=== PATIENT | male | born 1945 ===

== ENCOUNTER 2019-09-27 14:29 | Inpatient (IN) | payer OTHER, MEDICAID ==
[~2019-09-27] VITALS: Ht 172.7 cm; Wt 119.8 kg
[2019-09-27 14:00] VITALS: BP 106/55
--- NOTE | 2019-09-27 14:00 | NUR ---
A 74, admitted to [facility], under the services of TY Dodson DO with a diagnosis of dehydration, abnormal labs. Chief complaint is abnormal labs. Patient arrived via ambulance from [facility]. Monitor applied. Initial assessment completed. Vital signs taken and recorded. TY DODSON DO notified of admission to the unit. Orders received. See assessment for past medical history, medications and allergies. Patient and/or family oriented to unit. [facility] visitation policy reviewed. Clothing/patient valuable form completed. GRETCHEN QUIROS
[2019-09-27] MEDS ORDERED: TYLENOL325 M1 PO (14:33)
[2019-09-27] MEDS ORDERED: ASPIR LOW81 MG PO (14:35)
[2019-09-27] MEDS ORDERED: Accuneb 0.1.25 MG/3 INH (14:36)
[2019-09-27] MEDS ORDERED: N-ACETYL-L-CYS600 M1 NEB (14:37)
[2019-09-27] MEDS ORDERED: BASAG SOL SC (14:38)
[2019-09-27] MEDS ORDERED: GENTLE LAXATIVE10 MG R (14:40)
[2019-09-27] MEDS ORDERED: CLONIDINE HCL0.1 MG PO (14:40)
[2019-09-27] MEDS ORDERED: LASIX40 MG PO (14:41)
[2019-09-27] MEDS ORDERED: ELIQUIS5 M1 PO (14:41)
[2019-09-27] MEDS ORDERED: FLEET ENEMA 13133 ML R (14:42)
[2019-09-27] MEDS ORDERED: Ipratropium Brom3 ML INH (14:43)
[2019-09-27] MEDS ORDERED: LEVAQUIN750 M1 PO (14:45)
[2019-09-27] MEDS ORDERED: KLOR-CON M2020 ME1 PO (14:45)
[2019-09-27] MEDS ORDERED: COZAAR25 M1 PO (14:46)
[2019-09-27] MEDS ORDERED: MILK OF MA400 MG/51 PO (14:47)
[2019-09-27] MEDS ORDERED: PROTONIX40 MG PO (14:48)
[2019-09-27] MEDS ORDERED: NOVOLOG100 UNIT/1 SQ (14:50)
[2019-09-27] MEDS ORDERED: Synthroid,Levo50 MCG PO (14:51)
[2019-09-27 15:48] LABS: ABG BASE EXCESS 6.1 mmol/L (-2.0-2.0); ARTERIAL BLOOD GAS PH 7.472 (7.35-7.45)
[2019-09-27 16:00] VITALS: BP 120/68
--- NOTE | 2019-09-27 16:45 | NUR ---
TALKEN DOWN TO CT FOR CT ABDOMEN, CHEST AND PELVIS
--- NOTE | 2019-09-27 19:00 | NUR ---
DR. NAVARRETE NOTIFIED OF CONSULT ABD CT ABDOMEN RESULTS
[2019-09-27 20:00] VITALS: BP 123/63
[2019-09-28] VITALS: BP 107/78
[2019-09-28 04:00] VITALS: BP 117/79
--- NOTE | 2019-09-28 05:44 | NUR ---
CARMELINA SANDERS [id number] Please refer to the physician's history and physical for past medical history, comorbid conditions, and allergies. Diagnosis: DEHYDRATION PROTEIN-CALORIE MALNUTRITION SEVERE Adrian Score: 13,MODERATE RISK WOUND DESCRIPTIONS: Wound Number: 1 Location of the wound: right buttocks Type of wound: stage 2 Thickness: Partial Size: 1.5cm x 2.5cm x 0.1cm Tunneling: none Undermining: none Sinus Tract: none Presence of Exudate: Serosanguineous Amount: Light Color: Red Odor: None Periwound Skin Appearance: Scar Wound edges: approximated Pain (associated with wound): none at time of assessment How does patient state this happened? pt unable to state how this happened Wound Number: 2 Location of the wound: left buttocks Type of wound: stage 2 Thickness: Partial Size: 0.5cm x 2.5cm x 0.1cm Tunneling: none Undermining: none Sinus Tract: none Presence of Exudate: Serosanguineous Amount: Light Color: Red Odor: None Periwound Skin Appearance: Scar Wound edges: approximated Pain (associated with wound): none at time of assessment How does patient state this happened? pt unable to state how this happened Wound Number: 3 Location of the wound: right ankle Type of wound: stage 2 Thickness: Partial Size: 1.0cm x 1.5cm x 0.1cm Tunneling: none Undermining: none Sinus Tract: none Presence of Exudate: none Amount: None Color: Red Odor: None Periwound Skin Appearance: Normal Wound edges: approximated Pain (associated with wound): none at time of assessment How does patient state this happened? pt unable to state how this happened Surface the patient is resting on: XPRT SKIN PREVENTION RECOMMENDATION: 1. Pressure redistribution support surface as appropriate 2. Elevate heels 3. Remove boots/TEDS every shift and reapply 4. Head of bed 30 degrees as tolerated 5. Assess nutrition and hydration 6. Manage moisture 7. Avoid the use of containment devices while in bed 8. Use absorptive products on surfaces limit layers of linens on bed 9. Turn and reposition every 1-2 hours in bed and every 1 hour in chair as tolerated 10. Weight shifts every 15 minutes while up in chair 11. Offloading with pillows or device to keep heels elevated off bed 12. Monitor skin at least every shift 13. Inspect under medical devices twice a day WOUND TREATMENT RECOMMENDATIONS: Cleanse right buttocks, left buttocks and right ankle with nss and apply sureprep around the wound hydrogel to wound bed and cover with optifoam gentle. Heel raiser pro boots to bilateral feet while in bed.
[2019-09-28 06:11] LABS: ALBUMIN 2.5 gm/dl (3.1-4.5); CREATININE 2.26 mg/dL (0.70-1.30); PHOSPHOROUS 2.5 mg/dL (2.5-4.9); POTASSIUM 3.4 mmol/L (3.5-5.1); TOTAL PROTEIN 8.9 gm/dL (6.4-8.2)
[2019-09-28 06:16] LABS: FREE T4 3.11 ng/dl (0.76-1.46)
[2019-09-28 06:17] LABS: VITAMIN D, 25-HYDROXY 60.9 ng/mL (30-100)
[2019-09-28 06:33] LABS: BASO # 0.1 10*3/uL (0.0-0.1); BASO % 0.7 % (0.0-1.0); EOS # 0.4 10*3/uL (0.0-0.4); HEMOGLOBIN 11.2 g/dl (14.0-18.0); LYMPH # 1.5 10*3/uL (1.3-4.4); LYMPH % 19.8 % (27.0-41.0); MEAN CELL VOLUME 92.9 fl (80.0-94.0); MEAN CORPUSCULAR HGB 27.4 pg (27.0-31.0); MEAN CORPUSCULAR HGB CONC 29.5 g/dl (33.0-37.0); MEAN PLATELET VOLUME 11.9 fl (9.6-12.3); MONO # 0.7 10*3/uL (0.1-1.0); NEUT # 4.7 10*3/uL (2.3-7.9); NUCLEATED RED BLOOD CELL 0.3 % (0.0-0.0); PLATELET COUNT AUTOMATED 207 10*3/uL (130-400); RED BLOOD COUNT 4.09 10*6/uL (4.50-5.90); RED CELL DISTRI WIDTH 16.5 % (0-14.5); WHITE BLOOD COUNT 7.4 10*3/uL (4.8-10.8)
[2019-09-28 07:14] LABS: INTERNATIONAL NORM RATIO 1.2 (2.0-3.5)
[2019-09-28 07:21] LABS: THYROID STIM HORMONE (HS) 12.7 uIU/ml (0.358-4.75)
[2019-09-28 08:00] VITALS: BP 115/65
--- NOTE | 2019-09-28 08:00 | NUR ---
TAKEN OFF VENT AND PLACED ON TRACH MASK 35% PULSE OX 100%. STARES AROUND ROOM AND DOES TRACK WITH EYES. NON-VERBAL. D5W @80CC/HR VIA RIGHT ARM. NO EDEMA NOTED. BP 115/65
--- NOTE | 2019-09-28 08:34 | NUR ---
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 Patient is ok to return when medically stable for discharge.
[2019-09-28 12:00] VITALS: BP 119/73
--- NOTE | 2019-09-28 12:57 | NUR ---
PT IS [facility] AT [facility] AND WILL RETURN WHEN MEDICALLY STABLE. WILL CONTINUE TO FOLLOW.
[2019-09-28 13:09] LABS: BILIRUBIN 1+ (NEGATIVE); BLOOD 3+ (NEGATIVE); CLARITY SL CLOUDY (CLEAR); COLOR YELLOW (YELLOW); GLUCOSE NEGATIVE (NEGATIVE); KETONE NEGATIVE (NEGATIVE); LEUKO ESTERASE TRACE (NEGATIVE); NITRITE NEGATIVE (NEGATIVE); SPECIFIC GRAVITY >= 1.030 (1.005-1.030)
[2019-09-28 13:22] LABS: BACTERIA 1+; RBC 21-30 rbc/hpf (0-2); WBC 21-30 wbc/hpf (0-5)
[2019-09-28 16:00] VITALS: BP 104/40
[2019-09-28 20:00] VITALS: BP 113/74
--- NOTE | 2019-09-28 20:13 | NUR ---
1930 REPOSITIONED ON LEFT SIDE. HOB ELEVATED. SIDE RAILS UP X'S 2. REMAINS NON-VERBAL. IV FLUIDS CONT. PAK PATENT AND DRAINING CLEAR SHADIA URINE. PULSE OX 100% WITH TRACH MASK INTACT. TF MAINTAINED VIA FEEDING TUBE. NO DISTRESS NOTED.
--- NOTE | 2019-09-28 20:53 | NUR ---
COMPLETE BED BATH GIVEN AND LINENS CHANGED.
--- NOTE | 2019-09-28 22:07 | NUR ---
SUCTIONED VIA TRACH FOR MODERATE AMOUNT BLOOD TINGED SPUTUM. TRACH MASK INTACT.
[2019-09-29] VITALS: BP 98/64
--- NOTE | 2019-09-29 00:21 | NUR ---
VENT SECURE TO TRACH. PULSE OX 99%. RESTING IN BED WITH HOB ELEVATED. SIDE RAILS UP X'S 2. EYES CLOSED. APPEARS TO BE SLEEPING. IV FLUIDS CONT.
--- NOTE | 2019-09-29 03:01 | NUR ---
Upon discharge recommend patient to follow up for wound care in outpatient setting continue current wound care orders at discharging facility.
--- NOTE | 2019-09-29 03:54 | NUR ---
Shift chart check completed.
[2019-09-29 04:00] VITALS: BP 102/68
[2019-09-29 05:32] LABS: CREATININE 2.18 mg/dL (0.70-1.30); PHOSPHOROUS 2.8 mg/dL (2.5-4.9); POTASSIUM 3.3 mmol/L (3.5-5.1)
[2019-09-29 06:14] LABS: BASO # 0.1 10*3/uL (0.0-0.1); BASO % 0.6 % (0.0-1.0); EOS # 0.5 10*3/uL (0.0-0.4); EOS % 5.9 % (1.0-4.0); HEMATOCRIT 34.8 % (42.0-52.0); HEMOGLOBIN 10.5 g/dl (14.0-18.0); LYMPH # 1.6 10*3/uL (1.3-4.4); LYMPH % 17.7 % (27.0-41.0); MEAN CELL VOLUME 92.3 fl (80.0-94.0); MEAN CORPUSCULAR HGB 27.9 pg (27.0-31.0); MEAN CORPUSCULAR HGB CONC 30.2 g/dl (33.0-37.0); MEAN PLATELET VOLUME 12.8 fl (9.6-12.3); MONO # 0.7 10*3/uL (0.1-1.0); MONO % 7.9 % (3.0-9.0); NEUT # 6.1 10*3/uL (2.3-7.9); NEUT % 67.6 % (47.0-73.0); PLATELET COUNT AUTOMATED 205 10*3/uL (130-400); RED BLOOD COUNT 3.77 10*6/uL (4.50-5.90); RED CELL DISTRI WIDTH 16.6 % (0-14.5)
--- NOTE | 2019-09-29 07:00 | NUR ---
ATTEMPTED TO PLACE DOMENIC AREVALO - PT PULLED LEG AWAY 7 GAVE NURSE A LOOK - ATTEMPTED TO PLACE AGAIN & PT REPEATED -- TUBIGRIP PLACED ALONG WITH REPLACED HEEL RAISERS
[2019-09-29 08:00] VITALS: BP 104/68
--- NOTE | 2019-09-29 08:30 | NUR ---
updated clinicals faxed to [facility] for review. 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
--- NOTE | 2019-09-29 08:53 | NUR ---
PATIENT PLACED ON 30% AEROSOL TRACH MASK PER ORDERS SPO2:99%
--- NOTE | 2019-09-29 09:00 | NUR ---
DR MCCLOUD ROUNDED - CASE DISCUSSED
--- NOTE | 2019-09-29 09:45 | NUR ---
DR MARIE ROUNDED/ CASE REVIEWED & DISCUSSED WITH RESP THERAPIST. PATIENT DOING WELL ON TRACH MASK 35% O2.
--- NOTE | 2019-09-29 10:31 | NUR ---
FACE SHEET FAXED TO [facility] FOR POSSIBLE TRANSFER -
--- NOTE | 2019-09-29 11:53 | NUR ---
PT IS [facility] AT [facility]. PT IS POSSIBLE TRASFER TO [facility]. WILL CONTINUE TO FOLLOW.
[2019-09-29 12:00] VITALS: BP 92/60
--- NOTE | 2019-09-29 12:15 | NUR ---
DR GAUTHIER ROUNDED AND ORDERS RECEIVED. IVF BOLUS ORDERED THEN IVF ADJUSTED.
[2019-09-29 16:00] VITALS: BP 106/56
--- NOTE | 2019-09-29 18:05 | NUR ---
RECEIVED CALL FROM [facility] - THEY ARE HOPING TO GET HIM THERE TONIGHT. CURRENT VITAL SIGNS REVIEWED. NO CHANGE IN STATUS. REQUESTED WE CALL IF ANY CHANGE..
[2019-09-29 20:00] VITALS: BP 98/48
--- NOTE | 2019-09-29 20:14 | NUR ---
1930 RESTING IN BED ON LEFT SIDE. HOB ELEVATED. SIDE RAILS UP X'S 2. TRACH MASK SECURE TO VENT. SUCTIONED FOR LARGE AMOUNT ELLIOTT SPUTUM. PULSE OX 100%.. PAK PATENT AND DRAINING CLEAR SHADIA URINE. NO DISTRESS NOTED.
--- NOTE | 2019-09-29 22:11 | NUR ---
PLACED ON THE VENT AT HS ORDERED.
[2019-09-30] VITALS: BP 107/69
--- NOTE | 2019-09-30 00:02 | NUR ---
INCONTINENT OF SMALL AMOUNT BROWN, MUSHY BM. COMPLETE BED BATH GIVEN AND LINENS CHANGED. REPOSITIONED ON R SIDE.
--- NOTE | 2019-09-30 00:22 | NUR ---
[facility] CALLED US. THEY HAVE A BED FOR TRANSFER. INFORMATION RECEIVED.
--- NOTE | 2019-09-30 00:53 | NUR ---
SIGNIFICANT OTHER, LAZARO SIMON, CALLED AND INFORMED OF PT IMPENDING TRANSFER TO [facility] VIA [facility].
--- NOTE | 2019-09-30 01:13 | NUR ---
TRANSFERRED TO [facility]IA [facility]. REPORT GIVEN TO AMBULANCE PERSONNEL. 02 INTACT VIA TRACH MASK FOR TRANSFER. DOBHOFF NG TUBE INTACT. TUBE FEEDINGS OFF FOR TRANSFER.
--- NOTE | 2019-09-30 01:31 | NUR ---
REPORT GIVEN TO RECEIVING FACILITY. PT CONDITION IS STABLE.
--- NOTE | 2019-09-30 01:32 | NUR ---
ACCEPTING PHYSICIAN IS DR. FIDE RAMIREZ.
--- NOTE | 2019-09-30 01:33 | NUR ---
ABOVE NOTE SHOULD READ PT WAS TRANSPORTED BY [facility]
== END 2019-09-30 01:13 | disposition short-term general hospital (02) | DRG 682 ==
LOC: ICCU 14:29
PROVIDERS: Family Medicine; Internal Medicine; Internal Medicine Nephrology; ADMIT Internal Medicine
PROC: 5A1935Z Respiratory Ventilation, Less than 24 Consecutive Hours (ICD-10-PCS; principal; 2019-09-30)
DX: N17.0 Acute kidney failure with tubular necrosis (principal); E43 Unspecified severe protein-calorie malnutrition; E87.0 Hyperosmolality and hypernatremia; J96.10 Chronic respiratory failure, unspecified whether with hypoxia or hypercapnia; E86.0 Dehydration; E87.6 Hypokalemia; N18.3 Chronic kidney disease, stage 3 (moderate); E87.8 Other disorders of electrolyte and fluid balance, not elsewhere classified; E83.41 Hypermagnesemia; E88.09 Other disorders of plasma-protein metabolism, not elsewhere classified; F03.90 Unspecified dementia, unspecified severity, without behavioral disturbance, psychotic disturbance, mood disturbance, and anxiety; E11.65 Type 2 diabetes mellitus with hyperglycemia; I50.9 Heart failure, unspecified; F32.9 Major depressive disorder, single episode, unspecified; J44.9 Chronic obstructive pulmonary disease, unspecified; I11.0 Hypertensive heart disease with heart failure; G47.33 Obstructive sleep apnea (adult) (pediatric); D53.9 Nutritional anemia, unspecified; E83.39 Other disorders of phosphorus metabolism; E11.22 Type 2 diabetes mellitus with diabetic chronic kidney disease; I25.10 Atherosclerotic heart disease of native coronary artery without angina pectoris; B96.5 Pseudomonas (aeruginosa) (mallei) (pseudomallei) as the cause of diseases classified elsewhere; S30.1XXA Contusion of abdominal wall, initial encounter; I25.2 Old myocardial infarction; Z93.0 Tracheostomy status; Z86.711 Personal history of pulmonary embolism; Z90.49 Acquired absence of other specified parts of digestive tract; Z88.8 Allergy status to other drugs, medicaments and biological substances; Z79.4 Long term (current) use of insulin; Z79.82 Long term (current) use of aspirin; Z79.899 Other long term (current) drug therapy; Z68.39 Body mass index [BMI] 39.0-39.9, adult; Z79.01 Long term (current) use of anticoagulants; Z87.442 Personal history of urinary calculi; X58.XXXA Exposure to other specified factors, initial encounter; Y93.89 Activity, other specified; Y92.89 Other specified places as the place of occurrence of the external cause; Y99.8 Other external cause status

== ENCOUNTER 2019-10-21 11:51 | Emergency (ER) | payer OTHER, MEDICAID ==
[~2019-10-21] VITALS: Ht 180.3 cm; Wt 127.0 kg
[~2019-10-21 11:51] MED LIST: ASPIR LOW81 MG PO; Accuneb 0.1.25 MG/3 INH; BASAG SOL SC; CLONIDINE HCL0.1 MG PO; COZAAR25 M1 PO; ELIQUIS5 M1 PO; FLEET ENEMA 13133 ML R; GENTLE LAXATIVE10 MG R; Ipratropium Brom3 ML INH; KLOR-CON M2020 ME1 PO; LASIX40 MG PO; LEVAQUIN750 M1 PO; MILK OF MA400 MG/51 PO; N-ACETYL-L-CYS600 M1 NEB; NOVOLOG100 UNIT/1 SQ; PROTONIX40 MG PO; Synthroid,Levo50 MCG PO; TYLENOL325 M1 PO
== END 2019-10-21 17:41 | disposition home or self-care (01) ==
LOC: ED 11:51
DX: T85.898A Other specified complication of other internal prosthetic devices, implants and grafts, initial encounter (principal); I25.2 Old myocardial infarction; E11.9 Type 2 diabetes mellitus without complications; J44.9 Chronic obstructive pulmonary disease, unspecified; I11.0 Hypertensive heart disease with heart failure; I50.9 Heart failure, unspecified; Z79.82 Long term (current) use of aspirin; Z79.2 Long term (current) use of antibiotics; Z88.8 Allergy status to other drugs, medicaments and biological substances; Z79.899 Other long term (current) drug therapy; Y83.8 Other surgical procedures as the cause of abnormal reaction of the patient, or of later complication, without mention of misadventure at the time of the procedure; Y92.89 Other specified places as the place of occurrence of the external cause

== ENCOUNTER 2019-10-26 18:33 | Emergency (ER) | payer OTHER, MEDICAID ==
[~2019-10-26] VITALS: Ht 175.2 cm; Wt 134.3 kg
== END 2019-10-26 21:50 | disposition home or self-care (01) ==
LOC: ED 18:33
DX: T85.528A Displacement of other gastrointestinal prosthetic devices, implants and grafts, initial encounter (principal); E11.22 Type 2 diabetes mellitus with diabetic chronic kidney disease; I13.0 Hypertensive heart and chronic kidney disease with heart failure and stage 1 through stage 4 chronic kidney disease, or unspecified chronic kidney disease; N18.9 Chronic kidney disease, unspecified; I50.9 Heart failure, unspecified; J44.9 Chronic obstructive pulmonary disease, unspecified; F03.90 Unspecified dementia, unspecified severity, without behavioral disturbance, psychotic disturbance, mood disturbance, and anxiety; I25.2 Old myocardial infarction; Z93.0 Tracheostomy status; Y84.8 Other medical procedures as the cause of abnormal reaction of the patient, or of later complication, without mention of misadventure at the time of the procedure; Y92.89 Other specified places as the place of occurrence of the external cause

== ENCOUNTER 2019-10-27 21:59 | Emergency (ER) | payer OTHER, MEDICAID ==
[~2019-10-27] VITALS: Ht 180.3 cm; Wt 125.6 kg
[2019-10-27 22:46] LABS: BASO % 0.3 % (0.0-1.0); EOS # 0.1 10*3/uL (0.0-0.4); EOS % 0.8 % (1.0-4.0); HEMATOCRIT 35.2 % (42.0-52.0); HEMOGLOBIN 10.8 g/dl (14.0-18.0); LYMPH # 0.8 10*3/uL (1.3-4.4); LYMPH % 5.6 % (27.0-41.0); MEAN CELL VOLUME 89.1 fl (80.0-94.0); MEAN CORPUSCULAR HGB 27.3 pg (27.0-31.0); MEAN CORPUSCULAR HGB CONC 30.7 g/dl (33.0-37.0); MEAN PLATELET VOLUME 10.2 fl (9.6-12.3); MONO # 0.6 10*3/uL (0.1-1.0); MONO % 4.3 % (3.0-9.0); NEUT # 12.7 10*3/uL (2.3-7.9); NEUT % 88.3 % (47.0-73.0); PLATELET COUNT AUTOMATED 295 10*3/uL (130-400); RED BLOOD COUNT 3.95 10*6/uL (4.50-5.90); RED CELL DISTRI WIDTH 15.9 % (0-14.5); WHITE BLOOD COUNT 14.4 10*3/uL (4.8-10.8)
[2019-10-27 22:57] LABS: ACT PARTIAL THROMBO TIME 30.2 SECONDS (20.0-32.1)
[2019-10-27 23:04] LABS: ALBUMIN 2.2 gm/dl (3.1-4.5); ALKALINE PHOSPHATASE 76 U/L (45-117); BUN 15 mg/dl (7-24); CHLORIDE 100 mmol/L (98-107); CREATININE 1.06 mg/dL (0.70-1.30); POTASSIUM 4.2 mmol/L (3.5-5.1); SGOT/AST 31 IU/L (3-35); SGPT/ALT 19 U/L (12-78); SODIUM 136 mmol/L (136-145); TOTAL PROTEIN 8.6 gm/dL (6.4-8.2)
[2019-10-27 23:09] LABS: TROPONIN I < 0.015 ng/ml (<0.045)
[2019-10-27 23:36] LABS: ABG BASE EXCESS 6.9 mmol/L (-2.0-2.0); ARTERIAL BLOOD GAS PH 7.412 (7.35-7.45)
[2019-10-28 00:10] LABS: BILIRUBIN NEGATIVE (NEGATIVE); BLOOD TRACE-INTACT (NEGATIVE); CLARITY CLOUDY (CLEAR); COLOR YELLOW (YELLOW); GLUCOSE NEGATIVE (NEGATIVE); KETONE NEGATIVE (NEGATIVE); LEUKO ESTERASE NEGATIVE (NEGATIVE); NITRITE NEGATIVE (NEGATIVE); PH 5.5 (5.0-9.0); SPECIFIC GRAVITY >= 1.030 (1.005-1.030); UROBILINOGEN 0.2 E.U./dl (0.2-1.0)
[2019-10-28] MEDS ORDERED: AUGMENTIN400 MG/5 M PO (01:42)
== END 2019-10-28 04:15 | disposition home or self-care (01) ==
LOC: ED 21:59
PROVIDERS: Emergency Medicine Emergency Medical Services
DX: J96.91 Respiratory failure, unspecified with hypoxia (principal); H70.93 Unspecified mastoiditis, bilateral; R41.82 Altered mental status, unspecified; J44.9 Chronic obstructive pulmonary disease, unspecified; I25.2 Old myocardial infarction; I13.0 Hypertensive heart and chronic kidney disease with heart failure and stage 1 through stage 4 chronic kidney disease, or unspecified chronic kidney disease; E11.22 Type 2 diabetes mellitus with diabetic chronic kidney disease; N18.3 Chronic kidney disease, stage 3 (moderate); I50.9 Heart failure, unspecified; Z93.0 Tracheostomy status; Z88.8 Allergy status to other drugs, medicaments and biological substances; Z79.899 Other long term (current) drug therapy; Z79.82 Long term (current) use of aspirin; Z79.4 Long term (current) use of insulin

== ENCOUNTER 2019-11-06 00:08 | Emergency (ER) | payer OTHER, MEDICAID ==
[~2019-11-06 00:08] MED LIST changes: +AUGMENTIN400 MG/5 M PO
== END 2019-11-06 01:27 | disposition other institution (70) ==
LOC: ED 00:08
DX: T85.528A Displacement of other gastrointestinal prosthetic devices, implants and grafts, initial encounter (principal); I25.2 Old myocardial infarction; E11.22 Type 2 diabetes mellitus with diabetic chronic kidney disease; I13.0 Hypertensive heart and chronic kidney disease with heart failure and stage 1 through stage 4 chronic kidney disease, or unspecified chronic kidney disease; N18.3 Chronic kidney disease, stage 3 (moderate); I50.9 Heart failure, unspecified; F03.90 Unspecified dementia, unspecified severity, without behavioral disturbance, psychotic disturbance, mood disturbance, and anxiety; Z88.8 Allergy status to other drugs, medicaments and biological substances; Z79.2 Long term (current) use of antibiotics; Z79.899 Other long term (current) drug therapy; Z79.82 Long term (current) use of aspirin; Z79.4 Long term (current) use of insulin; Z90.49 Acquired absence of other specified parts of digestive tract; Z93.0 Tracheostomy status; Z93.1 Gastrostomy status; Y84.8 Other medical procedures as the cause of abnormal reaction of the patient, or of later complication, without mention of misadventure at the time of the procedure; Y92.89 Other specified places as the place of occurrence of the external cause

== ENCOUNTER 2019-11-07 00:18 | Emergency (ER) | payer OTHER, MEDICAID ==
[~2019-11-07] VITALS: Ht 172.7 cm; Wt 128.5 kg
== END 2019-11-07 02:00 | disposition other institution (70) ==
LOC: ED 00:18
DX: T85.528A Displacement of other gastrointestinal prosthetic devices, implants and grafts, initial encounter (principal); I25.2 Old myocardial infarction; E11.22 Type 2 diabetes mellitus with diabetic chronic kidney disease; I13.0 Hypertensive heart and chronic kidney disease with heart failure and stage 1 through stage 4 chronic kidney disease, or unspecified chronic kidney disease; N18.3 Chronic kidney disease, stage 3 (moderate); I50.9 Heart failure, unspecified; F03.90 Unspecified dementia, unspecified severity, without behavioral disturbance, psychotic disturbance, mood disturbance, and anxiety; Z88.8 Allergy status to other drugs, medicaments and biological substances; Z79.2 Long term (current) use of antibiotics; Z79.899 Other long term (current) drug therapy; Z79.82 Long term (current) use of aspirin; Z79.4 Long term (current) use of insulin; Z90.49 Acquired absence of other specified parts of digestive tract; Z93.0 Tracheostomy status; Z93.1 Gastrostomy status; Y84.8 Other medical procedures as the cause of abnormal reaction of the patient, or of later complication, without mention of misadventure at the time of the procedure; Y92.89 Other specified places as the place of occurrence of the external cause

== ENCOUNTER → 2019-11-17 | Outpatient (CLI) | payer OTHER, MEDICAID ==
--- NOTE | 2019-11-17 11:30 | NUR ---
SPEECH THERAPY Patient was seen for a modified barium swallow study this date per physician orders. Patient is a resident of [facility]. He was accompanied to evaluation this date by his respiratory therapist who assisted in providing case history. Patient is a 74 year old male, presenting with tracheostomy tube, receiving 3LO2 via trach collar. Patient's cuff was partially inflated, per respiratory therapist, who additionally reports patient tolerates deflated cuff. Patient currently receives nutrition via NG tube which was present during assessment. Patient has medical history s/f Dementia, chronic respiratory failure, and COPD. Respiratory therapist reports that patient has been trached for approximately 6-8 months. He additionally reports Speech Therapist within [facility] has been working with patient on PO intake. Patient was not able to follow simple, verbal directions paired with model, therefore oral mech exam not fully able to be administered, however natural teeth on the bottom were observed, while edentulous on top. Patient was assessed with pureed applesauce, banana, honey-like liquid, nectar-like liquid, and thin liquid barium with clinician assistance for feeding. Patient demonstrated slow mastication and AP transfer of pureed and soft solids. He required two swallows to clear oral cavity. During trials of solids and liquids, patient demonstrated delayed initiation of pharyngeal swallow, with pooling to the valleculae. Once swallow was triggered, no pharyngeal reisudes were observed. No penetration or aspiration was observed across all trials of each consistency, including thin liquid barium via tsp and cup. Trials were clinician-controlled, with small bites and sips to increase safety of oropharyngeal swallow. Patient was suctioned by respiratory therapist following PO intake. Mucus was suctioned, with no white barium observed. Patient demonstrated tolerance of soft diet with small sips of thin liquid. Patient is appropriate to begin PO intake, with recommended diet of soft solids and thin liquid. [place] safe swallowing strategies are recommended including taking small bites and sips and sitting upright during all PO intake. Recommend patient be monitored at meals and during PO intake. Recommend patient continue with NG tube feeding until patient can tolerate enough PO intake to maintain adequate nutrition and hydration, with physician to determine when appropriate for NG tube removal. Written results and recommendations were given to respiratory therapist to give to Speech Therapist within patient's nursing facility. Thank you for your consultation. Susan Griffith MA CCC-PERSONNEL REPRESENTATIVE
== END | disposition home or self-care (01) ==
LOC: RAD/SH 11-02 14:00
DX: R13.10 Dysphagia, unspecified (principal); R10.13 Epigastric pain; I10 Essential (primary) hypertension; E11.9 Type 2 diabetes mellitus without complications

== ENCOUNTER 2019-12-01 15:32 | Emergency (ER) | payer OTHER, MEDICAID ==
[2019-12-01 17:06] LABS: BASO # 0.1 10*3/uL (0.0-0.1); BASO % 0.6 % (0.0-1.0); EOS # 0.2 10*3/uL (0.0-0.4); EOS % 2.4 % (1.0-4.0); HEMOGLOBIN 11.6 g/dl (14.0-18.0); LYMPH # 1.6 10*3/uL (1.3-4.4); LYMPH % 20.7 % (27.0-41.0); MEAN CELL VOLUME 86.8 fl (80.0-94.0); MEAN CORPUSCULAR HGB 26.5 pg (27.0-31.0); MEAN CORPUSCULAR HGB CONC 30.5 g/dl (33.0-37.0); MEAN PLATELET VOLUME 10.6 fl (9.6-12.3); MONO # 0.5 10*3/uL (0.1-1.0); MONO % 5.9 % (3.0-9.0); NEUT # 5.4 10*3/uL (2.3-7.9); PLATELET COUNT AUTOMATED 253 10*3/uL (130-400); RED BLOOD COUNT 4.38 10*6/uL (4.50-5.90); RED CELL DISTRI WIDTH 16.6 % (0-14.5); WHITE BLOOD COUNT 7.8 10*3/uL (4.8-10.8)
[2019-12-01 17:21] LABS: ALBUMIN 2.6 gm/dl (3.1-4.5); ALKALINE PHOSPHATASE 85 U/L (45-117); BUN 17 mg/dl (7-24); CHLORIDE 106 mmol/L (98-107); CREATININE 1.23 mg/dL (0.70-1.30); POTASSIUM 3.8 mmol/L (3.5-5.1); SGOT/AST 22 IU/L (3-35); SGPT/ALT 15 U/L (12-78); SODIUM 141 mmol/L (136-145); TOTAL PROTEIN 8.6 gm/dL (6.4-8.2)
[2019-12-01 17:48] LABS: ABG BASE EXCESS 4.6 mmol/L (-2.0-2.0); ARTERIAL BLOOD GAS PH 7.44 (7.35-7.45)
== END 2019-12-01 21:40 | disposition other institution (70) ==
LOC: ED 15:32
PROVIDERS: Nurse Practitioner
DX: J18.9 Pneumonia, unspecified organism (principal); I12.9 Hypertensive chronic kidney disease with stage 1 through stage 4 chronic kidney disease, or unspecified chronic kidney disease; E11.22 Type 2 diabetes mellitus with diabetic chronic kidney disease; I50.9 Heart failure, unspecified; N18.3 Chronic kidney disease, stage 3 (moderate); Z88.8 Allergy status to other drugs, medicaments and biological substances; J44.9 Chronic obstructive pulmonary disease, unspecified; I25.2 Old myocardial infarction; F32.9 Major depressive disorder, single episode, unspecified; Z79.2 Long term (current) use of antibiotics; Z79.82 Long term (current) use of aspirin; Z79.899 Other long term (current) drug therapy; Z79.4 Long term (current) use of insulin; Z90.49 Acquired absence of other specified parts of digestive tract

== ENCOUNTER 2020-08-11 16:40 | Emergency (ER) | payer OTHER, MEDICAID ==
[~2020-08-11] VITALS: Ht 165.1 cm
== END 2020-08-11 18:09 | disposition short-term general hospital (02) ==
LOC: ED 16:40
DX: J95.03 Malfunction of tracheostomy stoma (principal); I25.2 Old myocardial infarction; E11.9 Type 2 diabetes mellitus without complications; I50.9 Heart failure, unspecified; I11.0 Hypertensive heart disease with heart failure; J44.9 Chronic obstructive pulmonary disease, unspecified; Z79.899 Other long term (current) drug therapy; Z79.82 Long term (current) use of aspirin; Z79.4 Long term (current) use of insulin; Z88.8 Allergy status to other drugs, medicaments and biological substances; Y83.8 Other surgical procedures as the cause of abnormal reaction of the patient, or of later complication, without mention of misadventure at the time of the procedure; Y92.89 Other specified places as the place of occurrence of the external cause

== ENCOUNTER 2020-09-07 06:17 | Emergency (ER) | payer OTHER, MEDICAID ==
[~2020-09-07] VITALS: Ht 177.8 cm; Wt 63.5 kg
== END 2020-09-07 09:25 | disposition other institution (70) ==
LOC: ED 06:17
DX: J95.03 Malfunction of tracheostomy stoma (principal); Z79.899 Other long term (current) drug therapy; Z79.82 Long term (current) use of aspirin; Z79.4 Long term (current) use of insulin; Z90.49 Acquired absence of other specified parts of digestive tract

== ENCOUNTER 2020-10-03 03:52 | Emergency (ER) | payer OTHER, MEDICAID ==
[~2020-10-03] VITALS: Ht 172.7 cm; Wt 90.7 kg
[2020-10-03 04:50] LABS: BASO # 0.1 10*3/uL (0.0-0.1); EOS # 0.2 10*3/uL (0.0-0.4); HEMATOCRIT 43.5 % (42.0-52.0); LYMPH % 32.1 % (27.0-41.0); MEAN CELL VOLUME 84.6 fl (80.0-94.0); MEAN CORPUSCULAR HGB 26.1 pg (27.0-31.0); MEAN CORPUSCULAR HGB CONC 30.8 g/dl (33.0-37.0); MEAN PLATELET VOLUME 10.4 fl (9.6-12.3); MONO # 0.5 10*3/uL (0.1-1.0); NEUT # 3.4 10*3/uL (2.3-7.9); NEUT % 55.7 % (47.0-73.0); PLATELET COUNT AUTOMATED 232 10*3/uL (130-400); RED BLOOD COUNT 5.14 10*6/uL (4.50-5.90); RED CELL DISTRI WIDTH 15.9 % (0-14.5); WHITE BLOOD COUNT 6.1 10*3/uL (4.8-10.8)
[2020-10-03 05:06] LABS: ALBUMIN 2.8 gm/dl (3.1-4.5); ALKALINE PHOSPHATASE 91 U/L (45-117); BUN 21 mg/dl (7-24); CHLORIDE 104 mmol/L (98-107); CREATININE 1.23 mg/dL (0.70-1.30); POTASSIUM 3.8 mmol/L (3.5-5.1); SGOT/AST 35 IU/L (3-35); SGPT/ALT 27 U/L (12-78); SODIUM 137 mmol/L (136-145); TOTAL PROTEIN 7.4 gm/dL (6.4-8.2)
[2020-10-03 05:09] LABS: TROPONIN I < 0.015 ng/ml (<0.045)
== END 2020-10-03 05:47 ==
LOC: ED 03:52
PROVIDERS: Internal Medicine
DX: Z00.01 Encounter for general adult medical examination with abnormal findings (principal); N18.31 Chronic kidney disease, stage 3a; Z88.8 Allergy status to other drugs, medicaments and biological substances; Z79.899 Other long term (current) drug therapy; Z79.4 Long term (current) use of insulin

== ENCOUNTER → 2020-10-09 | Outpatient (CLI) | payer OTHER, MEDICAID | END | disposition home or self-care (01) | LOC: RAD/SH 00:20 | PROVIDERS: ATTEND Internal Medicine | DX: R13.10 Dysphagia, unspecified (principal) ==

== ENCOUNTER 2020-11-24 01:38 | Emergency (ER) | payer MEDICARE, MEDICAID ==
[~2020-11-24] VITALS: Wt 92.5 kg
[2020-11-24 02:01] LABS: BILIRUBIN Negative (Negative); BLOOD Trace-Lysed (Negative); CLARITY Clear (Clear); COLOR Yellow (Yellow); GLUCOSE Negative (Negative); KETONE Negative (Negative); LEUKO ESTERASE 2+ (Negative); NITRITE Negative (Negative); SPECIFIC GRAVITY <= 1.005 (1.001-1.030)
[2020-11-24 02:13] LABS: BASO % 0.6 % (0.0-1.0); EOS # 0.3 10*3/uL (0.0-0.4); EOS % 3.9 % (1.0-4.0); HEMATOCRIT 45.9 % (42.0-52.0); LYMPH # 1.5 10*3/uL (1.3-4.4); MEAN CELL VOLUME 83.8 fl (80.0-94.0); MEAN CORPUSCULAR HGB 26.8 pg (27.0-31.0); MEAN PLATELET VOLUME 9.7 fl (9.6-12.3); MONO # 0.4 10*3/uL (0.1-1.0); MONO % 5.1 % (3.0-9.0); NEUT % 69.1 % (47.0-73.0); PLATELET COUNT AUTOMATED 191 10*3/uL (130-400); RED BLOOD COUNT 5.48 10*6/uL (4.50-5.90); RED CELL DISTRI WIDTH 17.1 % (0-14.5); WHITE BLOOD COUNT 7.2 10*3/uL (4.8-10.8)
[2020-11-24 02:31] LABS: WBC 16-20 wbc/hpf (0-5)
[2020-11-24 02:32] LABS: ALBUMIN 2.7 gm/dl (3.1-4.5); ALKALINE PHOSPHATASE 101 U/L (45-117); BUN 15 mg/dl (7-24); CHLORIDE 105 mmol/L (98-107); CREATININE 1.18 mg/dL (0.70-1.30); POTASSIUM 3.6 mmol/L (3.5-5.1); SGOT/AST 24 IU/L (3-35); SGPT/ALT 19 U/L (12-78); SODIUM 137 mmol/L (136-145); TOTAL PROTEIN 7.4 gm/dL (6.4-8.2)
[2020-11-24 02:36] LABS: TROPONIN I < 0.015 ng/ml (<0.045)
== END 2020-11-24 04:23 ==
LOC: ED 01:38
PROVIDERS: Emergency Medicine
DX: N39.0 Urinary tract infection, site not specified (principal); I13.0 Hypertensive heart and chronic kidney disease with heart failure and stage 1 through stage 4 chronic kidney disease, or unspecified chronic kidney disease; E11.22 Type 2 diabetes mellitus with diabetic chronic kidney disease; N18.31 Chronic kidney disease, stage 3a; G47.33 Obstructive sleep apnea (adult) (pediatric); Z88.8 Allergy status to other drugs, medicaments and biological substances; Z79.899 Other long term (current) drug therapy; Z79.4 Long term (current) use of insulin

== ENCOUNTER → 2021-02-18 | Outpatient (CLI) | payer MEDICARE, MEDICAID | END | disposition home or self-care (01) | LOC: CT 10:34 | PROVIDERS: ATTEND Urology | DX: S30.1XXA Contusion of abdominal wall, initial encounter (principal); R33.9 Retention of urine, unspecified; I25.10 Atherosclerotic heart disease of native coronary artery without angina pectoris; M51.36 Other intervertebral disc degeneration, lumbar region; J98.11 Atelectasis; X58.XXXA Exposure to other specified factors, initial encounter; Y93.89 Activity, other specified; Y92.89 Other specified places as the place of occurrence of the external cause; Y99.8 Other external cause status ==

== ENCOUNTER 2021-03-01 14:04 | Inpatient (IN) | payer MEDICARE, MEDICAID ==
[~2021-03-01] VITALS: Ht 172.7 cm; Wt 97.7 kg
[2021-03-01 14:10] VITALS: BP 172/71
[2021-03-01 15:02] LABS: BASO % 0.4 % (0.0-1.0); EOS # 0.1 10*3/uL (0.0-0.4); EOS % 0.4 % (1.0-4.0); HEMATOCRIT 42.3 % (42.0-52.0); LYMPH # 1.1 10*3/uL (1.3-4.4); LYMPH % 9.9 % (27.0-41.0); MEAN CELL VOLUME 86.5 fl (80.0-94.0); MEAN CORPUSCULAR HGB 27.4 pg (27.0-31.0); MEAN CORPUSCULAR HGB CONC 31.7 g/dl (33.0-37.0); MEAN PLATELET VOLUME 9.5 fl (9.6-12.3); MONO # 0.8 10*3/uL (0.1-1.0); MONO % 6.7 % (3.0-9.0); NEUT # 9.2 10*3/uL (2.3-7.9); NEUT % 82.3 % (47.0-73.0); PLATELET COUNT AUTOMATED 205 10*3/uL (130-400); RED BLOOD COUNT 4.89 10*6/uL (4.50-5.90); RED CELL DISTRI WIDTH 15.8 % (0-14.5); WHITE BLOOD COUNT 11.2 10*3/uL (4.8-10.8)
[2021-03-01 15:17] LABS: ALBUMIN 2.9 gm/dl (3.1-4.5); ALKALINE PHOSPHATASE 97 U/L (45-117); BUN 13 mg/dl (7-24); CHLORIDE 106 mmol/L (98-107); CREATININE 1.26 mg/dL (0.70-1.30); POTASSIUM 3.7 mmol/L (3.5-5.1); SGOT/AST 26 IU/L (3-35); SGPT/ALT 14 U/L (12-78); SODIUM 140 mmol/L (136-145); TOTAL PROTEIN 7.5 gm/dL (6.4-8.2)
[2021-03-01 16:10] VITALS: BP 158/78
[2021-03-01 17:17] VITALS: BP 160/88
[2021-03-01 17:43] LABS: BILIRUBIN Negative (Negative); BLOOD 1+ (Negative); CLARITY Cloudy (Clear); COLOR Yellow (Yellow); GLUCOSE Negative (Negative); KETONE Negative (Negative); LEUKO ESTERASE 3+ (Negative); NITRITE Positive (Negative)
[2021-03-01 17:49] LABS: BACTERIA 4+; EPITHELIAL CELLS 0-2; WBC TNTC wbc/hpf (0-5)
[2021-03-01] MEDS ORDERED: 'CLONIDINE0.1 MG PO (20:31)
[2021-03-01] MEDS ORDERED: VENTOLIN 02.5 MG/3 M INH (20:44)
[2021-03-01] MEDS ORDERED: BIOFREEZE118 ML T (20:45)
[2021-03-01] MEDS ORDERED: VITAMIN D350 MCG PO (20:46)
[2021-03-01] MEDS ORDERED: CHLORASEPTIC 1177 ML MM (20:46)
[2021-03-01] MEDS ORDERED: FLEET ENEMA EX230 M1 R (20:47)
[2021-03-01] MEDS ORDERED: FLOMAX0.4 MG PO (20:48)
[2021-03-01] MEDS ORDERED: LANTUS SOL100 UNIT/1 SC (20:50)
[2021-03-01] MEDS ORDERED: HYDROXYZINE HCL25 MG PO (20:50)
[2021-03-01] MEDS ORDERED: LOPERAMIDE HCL2 MG PO (20:51)
[2021-03-01] MEDS ORDERED: LOSARTAN POTASS50 M1 PO (20:52)
[2021-03-01] MEDS ORDERED: MIRTAZAPINE30 M1 PO (20:52)
[2021-03-01] MEDS ORDERED: PROZAC10 MG PO (20:53)
[2021-03-01] MEDS ORDERED: OMEPRAZOLE MAGN20 MG PO (20:53)
[2021-03-01] MEDS ORDERED: LEVOTHYROXINE100 MC1 PO (20:54)
[2021-03-02 04:35] VITALS: BP 116/62
[2021-03-02 05:57] LABS: BASO % 0.6 % (0.0-1.0); EOS # 0.1 10*3/uL (0.0-0.4); EOS % 1.5 % (1.0-4.0); HEMATOCRIT 38.6 % (42.0-52.0); LYMPH # 1.2 10*3/uL (1.3-4.4); LYMPH % 18.2 % (27.0-41.0); MEAN CELL VOLUME 85.2 fl (80.0-94.0); MEAN CORPUSCULAR HGB 27.8 pg (27.0-31.0); MEAN CORPUSCULAR HGB CONC 32.6 g/dl (33.0-37.0); MONO # 0.7 10*3/uL (0.1-1.0); MONO % 10.1 % (3.0-9.0); NEUT # 4.7 10*3/uL (2.3-7.9); NEUT % 69.3 % (47.0-73.0); PLATELET COUNT AUTOMATED 221 10*3/uL (130-400); RED BLOOD COUNT 4.53 10*6/uL (4.50-5.90); RED CELL DISTRI WIDTH 15.7 % (0-14.5); WHITE BLOOD COUNT 6.8 10*3/uL (4.8-10.8)
[2021-03-02 06:12] LABS: ALBUMIN 2.7 gm/dl (3.1-4.5); BUN 13 mg/dl (7-24); CHLORIDE 102 mmol/L (98-107); CHOLESTEROL 171 mg/dL (<200); CREATININE 1.22 mg/dL (0.70-1.30); LDL CHOLESTEROL 93 mg/dL (9-159); POTASSIUM 3.4 mmol/L (3.5-5.1); SGOT/AST 25 IU/L (3-35); SGPT/ALT 14 U/L (12-78); SODIUM 135 mmol/L (136-145); TRIGLYCERIDES 62 mg/dl (<150)
[2021-03-02 06:25] LABS: ALKALINE PHOSPHATASE 89 U/L (45-117)
[2021-03-02 07:51] LABS: VITAMIN D, 25-HYDROXY 55.6 ng/mL (30-100)
[2021-03-02 08:40] VITALS: BP 161/83
[2021-03-02 12:00] VITALS: BP 141/86
[2021-03-02 16:00] VITALS: BP 170/87
[2021-03-02 20:00] VITALS: BP 185/85
[2021-03-03] VITALS: BP 173/80
[2021-03-03 05:51] LABS: BUN 9 mg/dl (7-24); CHLORIDE 104 mmol/L (98-107); CREATININE 1.11 mg/dL (0.70-1.30); POTASSIUM 3.8 mmol/L (3.5-5.1); SODIUM 136 mmol/L (136-145)
[2021-03-03 06:23] LABS: BASO # 0.1 10*3/uL (0.0-0.1); BASO % 1.6 % (0.0-1.0); EOS # 0.7 10*3/uL (0.0-0.4); EOS % 13.7 % (1.0-4.0); LYMPH # 1.2 10*3/uL (1.3-4.4); LYMPH % 23.5 % (27.0-41.0); MEAN CELL VOLUME 87.5 fl (80.0-94.0); MEAN CORPUSCULAR HGB 27.7 pg (27.0-31.0); MEAN CORPUSCULAR HGB CONC 31.7 g/dl (33.0-37.0); MEAN PLATELET VOLUME 9.8 fl (9.6-12.3); MONO # 0.7 10*3/uL (0.1-1.0); MONO % 12.9 % (3.0-9.0); NEUT # 2.5 10*3/uL (2.3-7.9); NEUT % 48.1 % (47.0-73.0); PLATELET COUNT AUTOMATED 185 10*3/uL (130-400); RED CELL DISTRI WIDTH 15.8 % (0-14.5); WHITE BLOOD COUNT 5.1 10*3/uL (4.8-10.8)
[2021-03-03 08:00] VITALS: BP 152/90
[2021-03-03 12:00] VITALS: BP 150/88
[2021-03-03 16:22] VITALS: BP 127/87
[2021-03-03 20:00] VITALS: BP 154/85
[2021-03-04] VITALS: BP 158/78
[2021-03-04 06:56] LABS: BASO # 0.1 10*3/uL (0.0-0.1); BASO % 0.9 % (0.0-1.0); EOS # 0.6 10*3/uL (0.0-0.4); EOS % 10.4 % (1.0-4.0); HEMATOCRIT 40.8 % (42.0-52.0); LYMPH # 1.5 10*3/uL (1.3-4.4); LYMPH % 26.8 % (27.0-41.0); MEAN CELL VOLUME 86.1 fl (80.0-94.0); MEAN CORPUSCULAR HGB 27.6 pg (27.0-31.0); MEAN CORPUSCULAR HGB CONC 32.1 g/dl (33.0-37.0); MEAN PLATELET VOLUME 10.2 fl (9.6-12.3); MONO # 0.6 10*3/uL (0.1-1.0); MONO % 11.1 % (3.0-9.0); NEUT # 2.8 10*3/uL (2.3-7.9); NEUT % 50.6 % (47.0-73.0); PLATELET COUNT AUTOMATED 202 10*3/uL (130-400); RED BLOOD COUNT 4.74 10*6/uL (4.50-5.90); RED CELL DISTRI WIDTH 15.5 % (0-14.5); WHITE BLOOD COUNT 5.5 10*3/uL (4.8-10.8)
[2021-03-04 07:02] LABS: ALBUMIN 2.7 gm/dl (3.1-4.5); ALKALINE PHOSPHATASE 84 U/L (45-117); BUN 8 mg/dl (7-24); CHLORIDE 104 mmol/L (98-107); CREATININE 1.08 mg/dL (0.70-1.30); POTASSIUM 3.8 mmol/L (3.5-5.1); SGOT/AST 21 IU/L (3-35); SGPT/ALT 12 U/L (12-78); SODIUM 138 mmol/L (136-145); TOTAL PROTEIN 6.6 gm/dL (6.4-8.2)
[2021-03-04 08:00] VITALS: BP 163/98
[2021-03-04] MEDS ORDERED: CALCIUM CARBON200 MG PO (11:41)
[2021-03-04] MEDS ORDERED: CEFUROXIME AXE500 MG PO (11:41)
[2021-03-04 12:00] VITALS: BP 160/90
== END 2021-03-04 14:00 | DRG 871 ==
LOC: ED 14:04 → 4E 16:42 → EDHOLD 16:42 → 4E 03-02 08:07
PROVIDERS: Student in an Organized Health Care Education/Training Program; ADMIT Family Medicine; ATTEND Family Medicine
DX: A41.9 Sepsis, unspecified organism (principal); G93.41 Metabolic encephalopathy; E43 Unspecified severe protein-calorie malnutrition; E87.1 Hypo-osmolality and hyponatremia; I50.32 Chronic diastolic (congestive) heart failure; J96.10 Chronic respiratory failure, unspecified whether with hypoxia or hypercapnia; N39.0 Urinary tract infection, site not specified; G47.33 Obstructive sleep apnea (adult) (pediatric); I11.0 Hypertensive heart disease with heart failure; F03.90 Unspecified dementia, unspecified severity, without behavioral disturbance, psychotic disturbance, mood disturbance, and anxiety; E83.51 Hypocalcemia; B96.20 Unspecified Escherichia coli [E. coli] as the cause of diseases classified elsewhere; Z20.822 Contact with and (suspected) exposure to COVID-19; E11.649 Type 2 diabetes mellitus with hypoglycemia without coma; F32.9 Major depressive disorder, single episode, unspecified; J44.9 Chronic obstructive pulmonary disease, unspecified; D64.9 Anemia, unspecified; Z86.73 Personal history of transient ischemic attack (TIA), and cerebral infarction without residual deficits; Z88.8 Allergy status to other drugs, medicaments and biological substances; Z90.49 Acquired absence of other specified parts of digestive tract; I25.2 Old myocardial infarction; Z86.711 Personal history of pulmonary embolism; Z79.899 Other long term (current) drug therapy; Z68.32 Body mass index [BMI] 32.0-32.9, adult

== ENCOUNTER 2021-03-22 09:47 | Emergency (ER) | payer MEDICARE, MEDICAID ==
[~2021-03-22] VITALS: Ht 182.8 cm; Wt 95.7 kg
[~2021-03-22 09:47] MED LIST changes: +'CLONIDINE0.1 MG PO; +BIOFREEZE118 ML T; +CALCIUM CARBON200 MG PO; +CEFUROXIME AXE500 MG PO; +CHLORASEPTIC 1177 ML MM; +FLEET ENEMA EX230 M1 R; +FLOMAX0.4 MG PO; +HYDROXYZINE HCL25 MG PO; +LANTUS SOL100 UNIT/1 SC; +LEVOTHYROXINE100 MC1 PO; +LOPERAMIDE HCL2 MG PO; +LOSARTAN POTASS50 M1 PO; +MIRTAZAPINE30 M1 PO; +OMEPRAZOLE MAGN20 MG PO; +PROZAC10 MG PO; +VENTOLIN 02.5 MG/3 M INH; +VITAMIN D350 MCG PO
[2021-03-22 11:14] LABS: HEMATOCRIT 42.2 % (42.0-52.0); MEAN CELL VOLUME 86.5 fl (80.0-94.0); MEAN CORPUSCULAR HGB 27.7 pg (27.0-31.0); MEAN PLATELET VOLUME 10.4 fl (9.6-12.3); PLATELET COUNT AUTOMATED 208 10*3/uL (130-400); RED BLOOD COUNT 4.88 10*6/uL (4.50-5.90); RED CELL DISTRI WIDTH 15.5 % (0-14.5); WHITE BLOOD COUNT 5.8 10*3/uL (4.8-10.8)
[2021-03-22 11:23] LABS: ALBUMIN 2.7 gm/dl (3.1-4.5); ALKALINE PHOSPHATASE 89 U/L (45-117); BUN 12 mg/dl (7-24); CHLORIDE 105 mmol/L (98-107); CREATININE 1.24 mg/dL (0.70-1.30); SGOT/AST 32 IU/L (3-35); SGPT/ALT 12 U/L (12-78); SODIUM 137 mmol/L (136-145); TOTAL PROTEIN 7.2 gm/dL (6.4-8.2)
[2021-03-22 11:24] LABS: TROPONIN I < 0.015 ng/ml (<0.045)
[2021-03-22 11:25] LABS: POTASSIUM 5.1 mmol/L (3.5-5.1)
[2021-03-22 11:28] LABS: BASOPHILS 1 % (0-1); PLATELET SUFFICIENCY NORMAL (NORMAL); SCHISTOCYTES FEW; TOTAL CELLS COUNTED 100 #CELLS
== END 2021-03-22 17:42 ==
LOC: ED 09:47
PROVIDERS: Emergency Medicine
DX: I71.1 Thoracic aortic aneurysm, ruptured (principal); R07.89 Other chest pain; F03.90 Unspecified dementia, unspecified severity, without behavioral disturbance, psychotic disturbance, mood disturbance, and anxiety; E11.22 Type 2 diabetes mellitus with diabetic chronic kidney disease; I12.9 Hypertensive chronic kidney disease with stage 1 through stage 4 chronic kidney disease, or unspecified chronic kidney disease; N18.31 Chronic kidney disease, stage 3a; J44.9 Chronic obstructive pulmonary disease, unspecified; F32.9 Major depressive disorder, single episode, unspecified; I25.2 Old myocardial infarction; Z93.1 Gastrostomy status; Z98.890 Other specified postprocedural states; Z93.0 Tracheostomy status; Z88.8 Allergy status to other drugs, medicaments and biological substances; Z79.2 Long term (current) use of antibiotics; Z79.899 Other long term (current) drug therapy; Z86.711 Personal history of pulmonary embolism; Z87.442 Personal history of urinary calculi; Z90.49 Acquired absence of other specified parts of digestive tract

== ENCOUNTER 2021-05-10 23:23 | Emergency (ER) | payer MEDICARE, MEDICAID ==
[2021-05-10 23:57] LABS: BASO # 0.1 10*3/uL (0.0-0.1); BASO % 0.7 % (0.0-1.0); EOS # 0.1 10*3/uL (0.0-0.4); EOS % 1.8 % (1.0-4.0); HEMATOCRIT 41.7 % (42.0-52.0); LYMPH # 1.1 10*3/uL (1.3-4.4); LYMPH % 15.7 % (27.0-41.0); MEAN CORPUSCULAR HGB 27.2 pg (27.0-31.0); MEAN CORPUSCULAR HGB CONC 31.7 g/dl (33.0-37.0); MEAN PLATELET VOLUME 9.9 fl (9.6-12.3); MONO # 0.5 10*3/uL (0.1-1.0); MONO % 6.8 % (3.0-9.0); NEUT # 5.4 10*3/uL (2.3-7.9); NEUT % 74.7 % (47.0-73.0); PLATELET COUNT AUTOMATED 208 10*3/uL (130-400); RED BLOOD COUNT 4.85 10*6/uL (4.50-5.90); RED CELL DISTRI WIDTH 14.6 % (0-14.5); WHITE BLOOD COUNT 7.3 10*3/uL (4.8-10.8)
[2021-05-11 00:15] LABS: BILIRUBIN Negative (Negative); BLOOD 1+ (Negative); CLARITY Turbid (Clear); COLOR Yellow (Yellow); GLUCOSE Negative (Negative); KETONE Negative (Negative); LEUKO ESTERASE 3+ (Negative); NITRITE Positive (Negative); SPECIFIC GRAVITY 1.015 (1.001-1.030)
[2021-05-11 00:15] LABS: ALBUMIN 2.9 gm/dl (3.1-4.5); ALKALINE PHOSPHATASE 90 U/L (45-117); BUN 21 mg/dl (7-24); CHLORIDE 103 mmol/L (98-107); CREATININE 1.46 mg/dL (0.70-1.30); POTASSIUM 3.5 mmol/L (3.5-5.1); SGOT/AST 20 IU/L (3-35); SGPT/ALT 14 U/L (12-78); SODIUM 139 mmol/L (136-145); TOTAL PROTEIN 6.9 gm/dL (6.4-8.2); TROPONIN I < 0.015 ng/ml (<0.045)
[2021-05-11 00:30] LABS: PH >= 9.0 (4.5-8.0)
[2021-05-11 00:32] LABS: TRIP PHOS CRYSTALS 3+
[2021-05-11 00:33] LABS: BACTERIA 2+
[2021-05-16] MEDS ORDERED: SEPTDS PO (10:31)
== END 2021-05-11 04:41 | disposition short-term general hospital (02) ==
LOC: ED 23:23
PROVIDERS: Emergency Medicine
DX: T81.30XA Disruption of wound, unspecified, initial encounter (principal); Z88.8 Allergy status to other drugs, medicaments and biological substances; Z79.899 Other long term (current) drug therapy; Z79.2 Long term (current) use of antibiotics; Z90.89 Acquired absence of other organs; Z90.49 Acquired absence of other specified parts of digestive tract; Z93.0 Tracheostomy status; Y73.8 Miscellaneous gastroenterology and urology devices associated with adverse incidents, not elsewhere classified; Y92.89 Other specified places as the place of occurrence of the external cause

== ENCOUNTER 2021-05-19 09:39 | Emergency (ER) | payer MEDICARE, MEDICAID ==
[~2021-05-19] VITALS: Wt 111.6 kg
[~2021-05-19 09:39] MED LIST changes: +SEPTDS PO
[2021-05-19 10:13] LABS: BASO # 0.1 10*3/uL (0.0-0.1); BASO % 1.1 % (0.0-1.0); EOS # 0.3 10*3/uL (0.0-0.4); LYMPH # 1.9 10*3/uL (1.3-4.4); LYMPH % 29.4 % (27.0-41.0); MEAN CELL VOLUME 86.1 fl (80.0-94.0); MEAN CORPUSCULAR HGB 27.5 pg (27.0-31.0); MEAN CORPUSCULAR HGB CONC 31.9 g/dl (33.0-37.0); MONO # 0.5 10*3/uL (0.1-1.0); MONO % 8.3 % (3.0-9.0); NEUT # 3.6 10*3/uL (2.3-7.9); PLATELET COUNT AUTOMATED 175 10*3/uL (130-400); RED BLOOD COUNT 4.88 10*6/uL (4.50-5.90); RED CELL DISTRI WIDTH 15.1 % (0-14.5); WHITE BLOOD COUNT 6.4 10*3/uL (4.8-10.8)
[2021-05-19 10:28] LABS: ALKALINE PHOSPHATASE 90 U/L (45-117); BUN 16 mg/dl (7-24); CHLORIDE 104 mmol/L (98-107); CREATININE 1.24 mg/dL (0.70-1.30); POTASSIUM 4.4 mmol/L (3.5-5.1); SGOT/AST 29 IU/L (3-35); SGPT/ALT 13 U/L (12-78); SODIUM 138 mmol/L (136-145); TOTAL PROTEIN 7.4 gm/dL (6.4-8.2)
[2021-05-19] MEDS ORDERED: LIPITOR10 MG PO (10:28)
[2021-05-19] MEDS ORDERED: HYDROCODONE-AC1 EAC1 PO (10:32)
[2021-05-19 11:36] LABS: BILIRUBIN Negative (Negative); BLOOD 1+ (Negative); CLARITY Clear (Clear); COLOR Yellow (Yellow); GLUCOSE Negative (Negative); KETONE Negative (Negative); LEUKO ESTERASE 1+ (Negative); NITRITE Negative (Negative); SPECIFIC GRAVITY 1.015 (1.001-1.030)
[2021-05-19 11:51] LABS: RBC 21-30 rbc/hpf (0-2)
[2021-05-19] MEDS ORDERED: FLAGYL500 MG PO (12:00)
[2021-05-19] MEDS ORDERED: CIPRO500 MG PO (12:00)
== END 2021-05-19 12:21 ==
LOC: ED 09:39
PROVIDERS: Physician Assistant
DX: K52.9 Noninfective gastroenteritis and colitis, unspecified (principal); Z88.8 Allergy status to other drugs, medicaments and biological substances; Z79.899 Other long term (current) drug therapy

== ENCOUNTER → 2021-05-20 | Outpatient (CLI) | payer MEDICARE ==
[~2021-05-20] MED LIST changes: +CIPRO500 MG PO; +FLAGYL500 MG PO; +HYDROCODONE-AC1 EAC1 PO; +LIPITOR10 MG PO
== END | disposition home or self-care (01) ==
LOC: RAD/SH 09:24
PROVIDERS: ATTEND Internal Medicine
DX: R13.10 Dysphagia, unspecified (principal)

== ENCOUNTER → 2021-07-03 | Day surgery (SDC) | payer MEDICARE ==
[~2021-07-03] VITALS: Ht 182.8 cm; Wt 88.9 kg
[~2021-07-03] MED LIST changes: +PROBIOTIC250 MG PO
[2021-07-03 08:10] VITALS: BP 198/110
[2021-07-03 09:14] VITALS: BP 75/46
[2021-07-03 09:29] VITALS: BP 104/62
[2021-07-03 09:44] VITALS: BP 123/76
== END | disposition home or self-care (01) ==
LOC: SDC 06-30 10:15
PROVIDERS: ATTEND Surgery
DX: Z12.11 Encounter for screening for malignant neoplasm of colon (principal); K57.30 Diverticulosis of large intestine without perforation or abscess without bleeding; I13.0 Hypertensive heart and chronic kidney disease with heart failure and stage 1 through stage 4 chronic kidney disease, or unspecified chronic kidney disease; E11.22 Type 2 diabetes mellitus with diabetic chronic kidney disease; N18.30 Chronic kidney disease, stage 3 unspecified; I50.9 Heart failure, unspecified; E11.51 Type 2 diabetes mellitus with diabetic peripheral angiopathy without gangrene; K21.9 Gastro-esophageal reflux disease without esophagitis; G47.33 Obstructive sleep apnea (adult) (pediatric); G47.00 Insomnia, unspecified; I25.2 Old myocardial infarction; E03.9 Hypothyroidism, unspecified; I25.10 Atherosclerotic heart disease of native coronary artery without angina pectoris; J44.9 Chronic obstructive pulmonary disease, unspecified; F41.9 Anxiety disorder, unspecified; F32.9 Major depressive disorder, single episode, unspecified; Z86.73 Personal history of transient ischemic attack (TIA), and cerebral infarction without residual deficits; Z86.711 Personal history of pulmonary embolism; Z79.899 Other long term (current) drug therapy
CPT/HCPCS: 00812; G0121

== ENCOUNTER → 2021-08-07 | Outpatient (CLI) | payer MEDICARE | END | disposition home or self-care (01) | LOC: US 11:01 | PROVIDERS: ATTEND Urology | DX: N28.1 Cyst of kidney, acquired (principal); M79.89 Other specified soft tissue disorders ==

== ENCOUNTER → 2021-08-18 | Outpatient (CLI) | payer MEDICARE | END | disposition home or self-care (01) | LOC: CT 12:59 | PROVIDERS: ATTEND Urology | DX: N28.1 Cyst of kidney, acquired (principal); N20.0 Calculus of kidney ==

== ENCOUNTER 2021-10-29 15:12 | Emergency (ER) | payer MEDICARE, MEDICAID ==
[~2021-10-29] VITALS: Wt 88.5 kg
== END 2021-10-29 15:40 ==
LOC: ED 15:12
DX: T83.098A Other mechanical complication of other urinary catheter, initial encounter (principal); J44.9 Chronic obstructive pulmonary disease, unspecified; I25.2 Old myocardial infarction; I13.0 Hypertensive heart and chronic kidney disease with heart failure and stage 1 through stage 4 chronic kidney disease, or unspecified chronic kidney disease; E11.22 Type 2 diabetes mellitus with diabetic chronic kidney disease; N18.31 Chronic kidney disease, stage 3a; Z88.8 Allergy status to other drugs, medicaments and biological substances; Z79.899 Other long term (current) drug therapy; Y92.89 Other specified places as the place of occurrence of the external cause

== ENCOUNTER → 2022-02-13 | Outpatient (CLI) | payer MEDICARE, MEDICAID | END | disposition home or self-care (01) | LOC: CT 02-10 09:00 | PROVIDERS: ATTEND Urology | DX: N28.1 Cyst of kidney, acquired (principal); N20.0 Calculus of kidney; N28.89 Other specified disorders of kidney and ureter ==

== ENCOUNTER → 2022-04-17 | Outpatient (CLI) | payer MEDICARE, MEDICAID | END | disposition home or self-care (01) | LOC: RAD/SH 09:56 | PROVIDERS: ATTEND Internal Medicine | DX: R13.10 Dysphagia, unspecified (principal); M25.78 Osteophyte, vertebrae; M48.02 Spinal stenosis, cervical region ==